=== PATIENT | male | born 2005 | race Caucasian/White ===

== ENCOUNTER 2023-11-04 14:12 | Emergency (ER) | payer OTHER, SELFPAY ==
[2023-11-04 14:18] VITALS: BP 134/49; PULSE 61; RESP 18; TEMP 36.8; O2SAT 98
--- NOTE | 2023-11-04 14:42 | ED.GENADUL_ITS ---
HPI General Mode of arrival: ambulatory . Date/Time Provider Initiated Documentation: 11/04/23 14:32 . Limitations to Documentation: no limitations . Information obtained by: patient . HPI Narrative: 18-year-old male here with chief complaint of laceration. Patient notes he was ski racing and impacted his chin on a gate just prior to arrival and sustained laceration. Wound has stopped bleeding. Patient also notes injury to his left upper lip. No dental injury. Related Data Home Medications Medication Instructions Recorded Confirmed Unknown [No Known Home Meds] 11/04/23 11/04/23 Allergies Allergy/AdvReac Type Severity Reaction Status Date / Time No Known Allergies Allergy Unverified 11/04/23 14:22 General Stated Complaint: Laceration ARIEL: 4 Review of Systems ENT Ears, Nose, Mouth, and Throat: Reports as per HPI Integumentary/Breasts Skin/Breast: Reports as per HPI Exam Const General: cooperative and no acute distress HENMT Head: normocephalic Mouth: oral mucosae normal and moist mucous membranes Teeth and gingiva: dentition normal and other Other: left upper lip swollen with superfical abrasion Neck Neck: trachea midline and supple Skin Trauma: laceration (2cm skin tear across chin, no bleeding) Neuro General: patient alert, patient awake and patient oriented x3 Course Vital Signs Vital signs: Vital Signs Temperature 36.8 C 11/04/23 14:18 Pulse 61 11/04/23 14:18 Respiratory Rate 18 11/04/23 14:18 Blood Pressure 134/49 L 11/04/23 14:18 Pulse Oximetry 98 11/04/23 14:18 Temperature 36.8 C 11/04/23 14:18 Temperature Source Oral 11/04/23 14:18 Pulse 61 11/04/23 14:18 Respiratory Rate 18 11/04/23 14:18 Respiratory Effort Normal, Non-Labored 11/04/23 14:28 Blood Pressure 134/49 L 11/04/23 14:18 Blood Pressure Position Sitting 11/04/23 14:18 Pulse Oximetry 98 11/04/23 14:18 Oxygen Delivery Method Room Air 11/04/23 14:18 Oxygen Flow Rate 0 11/04/23 14:18 Procedures Laceration Laceration 1: Site: face Size (cm): 2 Description: linear Depth: simple, single layer Local Anesthetic: Lidocaine 2% and with Epi Amount of anesthesia used (mL): 1 Pre-repair: wound explored, irrigated extensively and deep structures intact Skin layer closed with: other (prolene) Size (cm): 6-0 Number of sutures: 5 Technique: simple, interrupted Medical Decision Making Quality:SDOH Health Related Social Needs: No Data to Display PFSH All Active Problems (Updated 11/04/23 @ 14:47 by Shaun Croft MD) Contusion of lip (Acute) Contusion of face (Acute) Chin laceration (Acute) Social History Smoking/Tobacco Use Status: Never Smoking risk assessment performed?: Yes Alcohol Intake: never Substance use type: does not use Discharge Plan Disposition Patient Disposition: Home Condition: Stable Discharge Details Clinical Impression: Chin laceration, Contusion of face, Contusion of lip ED Provider: Shaun Croft Home Meds and New Rx's Prescriptions: No Action No Known Home Meds Discharge Instructions Instructions: Facial Laceration (ED) Additional Instructions: Wound should be assessed for suture removal in 6 to 7 days. Apply topical antibiotic ointment twice a day for the next week. Keep wound clean and protected. Please contact your primary care physician to arrange follow-up. Return to the ER immediately for any worsening or new concerning symptoms. Discharge Data Discharge Date/Time-TO BE ENTERED AT DEPARTURE: 11/04/23 16:17
[2023-11-04] MEDS: Lidocaine/Epinephri/Tetracaine Topical Gel 3 ML TP (14:56)
== END 2023-11-04 16:17 | disposition home or self-care (01) ==
PROVIDERS: Emergency Provider Student in an Organized Health Care Education/Training Program
DX: S01.81XA Laceration without foreign body of other part of head, initial encounter (principal); S00.531A Contusion of lip, initial encounter; S00.83XA Contusion of other part of head, initial encounter; W22.8XXA Striking against or struck by other objects, initial encounter; V00.321A Fall from snow-skis, initial encounter
CPT/HCPCS: 12011